=== PATIENT | male | born 1995 | race American Indian/Alaskan Native ===

== ENCOUNTER 2019-01-16 14:48 | Emergency (ER) | payer SELFPAY ==
--- NOTE | 2019-01-16 15:20 | Event Note ---
ED Screening Note Date of service: 01/16/19 Time: 15:16 ED Screening Note: This is a 23 y.o. M. that presents to the ER with pain, swelling, and abrasion to left anterior knee. Patient states he miss stepped on the curb yesterday falling and landing on left knee. Reports pain is worse with weight bearing to medial knee This initial assessment/diagnostic orders/clinical plan/treatment(s) is/are subject to change based on patients health status, clinical progression and re- assessment by fellow clinical providers in the ED. Further treatment and workup at subsequent clinical providers discretion. Patient/guardian urged not to elope from the ED as their condition may be serious if not clinically assessed and managed. Initial orders include: XR left knee
--- NOTE | 2019-01-16 16:00 | XRay Report ---
LEFT KNEE, 3 VIEWS INDICATION: MAIN: swelling and pain s/p fall PT AAO X 3 PT C/O LEFT KNEE PAIN AND LACERATION PT STAT ED HE FELL LAST NIGHT HX OF PREVIOUS INJURY 2010. REQUIRING PHYSICAL THERAPY BUT NO SURGERY . COMPARISON: None. IMPRESSION: No acute osseous or soft tissue abnormality. No significant DJD. A small joint effusi on is suspected on the lateral image. If internal derangement is suspected, MRI would provide the mos t information. Signer Name: Roberto Luong Jr, MD Signed: 01/16/2019 3:56 PM Workstation Name: [id number]
[2019-01-16] MEDS ORDERED: HYDROcodone/ACETAMINOPHEN 5-325 MG TAB PO ONE (16:58)
[2019-01-16] MEDS ORDERED: IBUPROFEN 800 MG TAB PO ONE (16:59)
--- NOTE | 2019-01-16 17:02 | Emergency Department Report ---
ED General Adult HPI - General Chief complaint: Extremity Injury, Lower Stated complaint: LFT KNEE INJURY/GASH/PAIN Time Seen by Provider: 01/16/19 15:15 Source: patient Mode of arrival: Wheelchair Limitations: No Limitations - History of Present Illness Initial comments: 23-year-old -Citizen Of [place] male patient complains of left knee pain after falling directly onto his knee last night. He rates pain at a 10/10 in severity and states he has trouble ambulating and bending the knee. -: Sudden Severity scale (0 -10): 10 Quality: aching, sharp Improves with: immobilization Worsens with: movement Associated Symptoms: denies other symptoms - Related Data Previous Rx's Medication Instructions Recorded Last Taken Type Ibuprofen [Motrin 800 MG tab] 800 mg PO Q8HR PRN #21 tablet 01/16/19 Unknown Rx Allergies Allergy/AdvReac Type Severity Reaction Status Date / Time No Known Allergies Allergy Unverified 01/16/19 15:11 ED Review of Systems ROS: Stated complaint: LFT KNEE INJURY/GASH/PAIN Other details as noted in HPI Comment: All other systems reviewed and negative Musculoskeletal: as per HPI ED Past Medical Hx - Past Medical History Previous Medical History?: No - Surgical History Past Surgical History?: Yes Additional Surgical History: WISDON TOOTH TAKEN OUT - Social History Smoking Status: Current Every Day Smoker Substance Use Type: Alcohol - Medications Home Medications: Home Medications Medication Instructions Recorded Confirmed Last Taken Type Ibuprofen [Motrin 800 MG tab] 800 mg PO Q8HR PRN #21 tablet 01/16/19 Unknown Rx ED Physical Exam - General Limitations: No Limitations General appearance: alert, in no apparent distress - Head Head exam: Present: atraumatic, normocephalic - Eye Eye exam: Present: normal appearance - Respiratory Respiratory exam: Absent: respiratory distress - Expanded Lower Extremity Exam Left Knee exam: Present: tenderness (noted over her patella and medial portion of me), swelling, abrasion, crepidus. Absent: laceration, deformity, dislocation - Neurological Exam Neurological exam: Present: alert, oriented X3 - Psychiatric Psychiatric exam: Present: normal affect, normal mood - Skin Skin exam: Present: warm, dry, intact, normal color. Absent: rash ED Course Vital Signs 01/16/19 15:18 Temperature 98.7 F Pulse Rate 113 H Respiratory 18 Rate Blood Pressure 132/75 O2 Sat by Pulse 98 Oximetry ED Medical Decision Making - Radiology Data Radiology results: report reviewed LEFT KNEE, 3 VIEWS INDICATION: MAIN: swelling and pain s/p fall PT AAO X 3 PT C/O LEFT KNEE PAIN AND LACERATION PT STATED HE FELL LAST NIGHT HX OF PREVIOUS INJURY 2010. REQUIRING PHYSICAL THERAPY BUT NO SURGERY . COMPARISON: None. IMPRESSION: No acute osseous or soft tissue abnormality. No significant DJD. A small joint effusion is suspected on the lateral image. If internal derangement is suspected, MRI would provide the most information. - Medical Decision Making Patient here for left knee injury. X-ray is negative for acute fracture. Patient still unable to fully extend any after pain medication. Recommend orthopedic follow-up. Patient to be placed in a knee immobilizer and given crutches. Discussed strict return precautions in great detail with patient who states understanding. Critical care attestation.: If time is entered above; I have spent that time in minutes in the direct care of this critically ill patient, excluding procedure time. ED Disposition Clinical Impression: Left knee injury Qualifiers: Encounter type: initial encounter Qualified Code(s): S89.92XA - Unspecified injury of left lower leg, initial encounter Disposition: - TO HOME OR SELFCARE Is pt being admited?: No Condition: Stable Instructions: Knee Sprain (ED) Prescriptions: Ibuprofen [Motrin 800 MG tab] 800 mg PO Q8HR PRN #21 tablet PRN Reason: Pain , Severe (7-10) Referrals: BO CHACKO MD [Staff Physician] - 3-5 Days
--- NOTE | 2019-01-16 17:50 | XRay Report ---
One sunrise view left knee INDICATION / CLINICAL INFORMATION: sunrise view needed, fell directly onto knee. COMPARISON: None available. FINDINGS: BONES/JOINT(S): No acute fracture or subluxation. No significant degenerative changes. SOFT TISSUES: No significant abnormality. ADDITIONAL FINDINGS: None. Signer Name: Saud Bonilla MD Signed: 01/16/2019 5:45 PM Workstation Name: [id number]
[2019-01-16 18:43] VITALS: BP 120/65
== END 2019-01-16 18:54 | disposition home or self-care (01) ==
LOC: ED 14:48
DX: S80.212A Abrasion, left knee, initial encounter (principal); F17.200 Nicotine dependence, unspecified, uncomplicated; F10.10 Alcohol abuse, uncomplicated; W18.39XA Other fall on same level, initial encounter; Y93.89 Activity, other specified; Y92.89 Other specified places as the place of occurrence of the external cause; Y99.8 Other external cause status